=== PATIENT | female | born 1995 | race Caucasian/White ===

== ENCOUNTER 2016-07-17 13:00 | Emergency (ER) | payer BC ==
[2016-07-17] MEDS ORDERED: Sodium Chloride 0.9% 10 ML Syringe FLUSH PRN (13:29)
[2016-07-17] MEDS ORDERED: Sodium Chloride 0.9% 1,000 ML IV SCH (13:30)
[2016-07-17] MEDS ORDERED: Ketorolac 30 MG/ML SDV IVPUSH ONE (13:31)
[2016-07-17] MEDS ORDERED: cefTRIAXone 1,000 MG in Sodium Chloride 0.9% 50 ML IV ONE (13:39)
--- NOTE | 2016-07-17 13:49 | EDM.PDOC ---
ED HPI GI/ABDOMINAL - General Chief Complaint: Abdominal Pain Stated Complaint: abdominal pain Time Seen by Provider: 07/17/16 13:20 Source: Reports: Patient History Limitations: Reports: No limitations - History of Present Illness INITIAL COMMENTS - FREE TEXT/NARRATIVE: c/o abd pain x 3h pt drank 8-9 gin and tonics last night, woke up at 8 AM and was "hung over", ate hash browns and a few bites of eggs and martínez. At 10:30 AM she had onset of sharp pain in her L lower back and periumbilical area, both at the same time. She took Aleve or Advil x 3 at 10:30 AM, which has not helped. Pain has persisted. Inc'd with walking, no change with DB. No freq or dysuria. Did have UTI x 1 in past. No prior abd problems. UA here did show clots of blood as well as moderate bacteria and large amount of RBC. No n/v, no f/c/d. Regular BMs. Had an eating disorder in HS, wouild eat only bananas and only a few of them, would binge and purge. Was anxious and had PAs, still has anxiety, PAs are less of an issue. Last saw PCP Olivia Marcelino 1y ago, she rx'ed meds for anxiety and depression, however pt gained wt, stoped the meds, and has been "eating healthy." LMP 2w ago, wnl, 4-5d flow, on BCP. Had "diarrhea constantly" in HS, on a lactose free diet and then a gluten free diet, which helped fora couple of days. Sister had celiac disease. Had seen GI physician, colonoscopy recommended to evaluate for inflammatory bowel ds, not done yet. Sister has celiac ds. Grandfather has irritable bowel ds. Here with s.o. no prior abd surgery - Related Data Allergies/ADRs: Allergies Allergy/AdvReac Type Severity Reaction Status Date / Time animals Allergy Hives Uncoded 07/17/16 13:26 seasonal allergies Allergy Itching Uncoded 07/17/16 13:26 Home Meds: Home Meds Clindamycin HCl 300 mg PO TID #21 capsule 07/17/16 [Rx] Ibuprofen [Motrin] 800 mg PO QID PRN 07/17/16 [History] Norgestrel-Ethinyl Estradiol [Elinest-28 Tablet] 1 tab PO DAILY 07/17/16 [ History] Past Medical History Psychiatric History: Reports: Anxiety, Depression Social & Family History - Tobacco Use Smoking Status *Q: Former Smoker Used Tobacco, but Quit: Yes Month Tobacco Last Used: 18 month ago - Caffeine Use Caffeine Use: Reports: Coffee - Recreational Drug Use Recreational Drug Use: No ED ROS GENERAL - Review of Systems Review Of Systems: See Below Constitutional: Reports: no symptoms HEENT: Reports: No symptoms Respiratory: Reports: No Symptoms Cardiovascular: Reports: No symptoms Endocrine: Reports: no symptoms GI/Abdominal: Reports: Abdominal pain, Decreased appetite : Reports: no symptoms Musculoskeletal: Reports: back pain Skin: Reports: no symptoms Neurological: Reports: No Symptoms Psychiatric: Reports: No symptoms Hematologic/Lymphatic: Reports: no symptoms Immunologic: Reports: no symptoms ED EXAM, GI/ABD - Physical Exam Exam: See Below Exam Limited By: No limitations General Appearance: alert, WD/WN, mild distress, other (alert, nonill, walks gingerly, nontoxic) Eyes: bilateral: normal appearance, EOMI Ears: normal external exam, normal canal, hearing grossly normal, normal TMs Nose: normal inspection, normal mucosa, no blood Throat/Mouth: Normal inspection, Normal lips, Normal teeth, Normal gums, Normal oropharynx, Normal voice, No airway compromise Head: atraumatic, normocephalic Neck: normal inspection, supple, non-tender, full range of motion Respiratory/Chest: no respiratory distress, lungs clear, normal breath sounds, no accessory muscle use, chest non-tender Cardiovascular: normal peripheral pulses, regular rate, rhythm, no edema, no gallop, no JVD, no murmur, no rub GI/Abdominal: normal bowel sounds, soft, no organomegaly, no distention, no mass , other (good BS x 4, slight tender at L flank, ND, no guard, no rebound, 1+ tender at R flank, NT in lower and upper quadrants, no CVAT, mild spasm at R lower back) Rectal (Female) Exam: Normal Exam, Normal rectal tone Back Exam: normal inspection, full range of motion, NT Extremities: normal inspection, normal range of motion, non-tender, normal capillary refill, no pedal edema Neurological: alert, oriented, CN II-XII intact, normal cognition, normal gait, no motor/sensory deficits Psychiatric: normal affect, normal mood Skin Exam: Warm, Dry, Intact, Normal color, No rash Lymphatic: no adenopathy Course - Vital Signs Last Recorded V/S: Last Vital Signs Temp 36.9 C 07/17/16 13:15 Pulse 94 07/17/16 13:15 Resp 20 07/17/16 13:15 BP 134/87 07/17/16 13:15 Pulse Ox 100 07/17/16 13:15 - Orders/Labs/Meds Orders: Active Orders 24 hr Category Date Time Status Abdomen Pelvis wo Cont [CT] Stat Exams 07/17/16 13:38 Taken CULTURE URINE [RM] Stat Lab 07/17/16 13:15 Received LIPASE [REF] Stat Lab 07/17/16 13:36 Received Sodium Chloride 0.9% [Normal Saline] 1,000 ml Med 07/17/16 13:30 Active IV ASDIRECTED Sodium Chloride 0.9% [Saline Flush] Med 07/17/16 13:29 Active 10 ml FLUSH ASDIRECTED PRN Saline Lock Insert [OM.PC] Routine Oth 07/17/16 13:29 Ordered Medication Orders Sodium Chloride (Normal Saline) 1,000 mls @ 999 mls/hr IV ASDIRECTED HAN Last Admin: 07/17/16 13:40 Dose: 999 mls/hr Sodium Chloride (Saline Flush) 10 ml FLUSH ASDIRECTED PRN PRN Reason: Keep Vein Open Last Admin: 07/17/16 13:40 Dose: 10 ml Labs: Laboratory Tests 07/17/16 07/17/16 07/17/16 Range/Units 13:15 13:20 13:36 WBC 7.1 (4.5-12.0) X10-3/uL RBC 4.28 (3.23-5.20) x10(6)uL Hgb 12.9 (11.5-15.5) g/dL Hct 38.3 (30.0-51.3) % MCV 89.4 (80-96) fL MCH 30.3 (27.7-33.6) pg MCHC 33.8 (32.2-35.4) g/dL RDW 12.8 (11.5-15.5) % Plt Count 325 (125-369) X10(3)uL MPV 9.9 (7.4-10.4) fL Neut % (Auto) 60.0 (46-82) % Lymph % (Auto) 29.9 (13-37) % [place] % (Auto) 6.3 (4-12) % Eos % (Auto) 3 (1.0-5.0) % Baso % (Auto) 1 (0-2) % Neut # (Auto) 4.4 (1.6-8.3) # Lymph # (Auto) 2.1 (0.6-5.0) # [place] # (Auto) 0.4 (0.0-1.3) # Eos # (Auto) 0.2 (0.0-0.8) # Baso # (Auto) 0.0 (0.0-0.2) # Sodium (135-145) mmol/L Potassium (3.5-5.3) mmol/L Chloride (100-110) mmol/L Carbon Dioxide (23-29) mmol/L BUN (5-20) mg/dL Creatinine (0.6-1.3) mg/dL Est Cr Clr Drug Dosing mL/min Estimated GFR (MDRD) (>60) BUN/Creatinine Ratio (9-20) Glucose (80-116) mg/dL Calcium (8.6-10.2) mg/dL Total Bilirubin (0.1-1.3) mg/dL AST (5-27) IU/L ALT (14-26) IU/L Alkaline Phosphatase (56-112) IU/L C-Reactive Protein (0.0-1.0) mg/dL Total Protein (6.0-8.0) g/dL Albumin (3.5-5.2) g/dL Globulin g/dL Albumin/Globulin Ratio Amylase (28-100) U/L Urine Color Yellow (YELLOW) Urine Appearance Cloudy (CLEAR) Urine pH 9.0 H (5.0-6.5) Ur Specific [place] 1.015 (1.010-1.025) Urine Protein Trace (NEGATIVE) mg/dL Urine Glucose (UA) Normal (NEGATIVE) mg/dL Urine Ketones Negative (NEGATIVE) mg/dL Urine Occult Blood Large H (NEGATIVE) Urine Nitrite Negative (NEGATIVE) Urine Bilirubin Negative (NEGATIVE) Urine Urobilinogen Normal (NEGATIVE) mg/dL Ur Leukocyte Esterase Small H (NEGATIVE) Urine RBC >100 H (0) Urine WBC 5-10 (0) Ur Squamous Epith Cells Few H (NS,R,O) Urine Bacteria Moderate H (NS) Urine Mucus Few H (NS) Urine HCG, Qual Negative (NEGATIVE) 07/17/16 Range/Units 13:36 WBC (4.5-12.0) X10-3/uL RBC (3.23-5.20) x10(6)uL Hgb (11.5-15.5) g/dL Hct (30.0-51.3) % MCV (80-96) fL MCH (27.7-33.6) pg MCHC (32.2-35.4) g/dL RDW (11.5-15.5) % Plt Count (125-369) X10(3)uL MPV (7.4-10.4) fL Neut % (Auto) (46-82) % Lymph % (Auto) (13-37) % [place] % (Auto) (4-12) % Eos % (Auto) (1.0-5.0) % Baso % (Auto) (0-2) % Neut # (Auto) (1.6-8.3) # Lymph # (Auto) (0.6-5.0) # [place] # (Auto) (0.0-1.3) # Eos # (Auto) (0.0-0.8) # Baso # (Auto) (0.0-0.2) # Sodium 138 (135-145) mmol/L Potassium 3.6 (3.5-5.3) mmol/L Chloride 107 (100-110) mmol/L Carbon Dioxide 22 L (23-29) mmol/L BUN 14 (5-20) mg/dL Creatinine 0.8 (0.6-1.3) mg/dL Est Cr Clr Drug Dosing 86.50 mL/min Estimated GFR (MDRD) > 60 (>60) BUN/Creatinine Ratio 17.5 (9-20) Glucose 96 (80-116) mg/dL Calcium 8.5 L (8.6-10.2) mg/dL Total Bilirubin 0.3 (0.1-1.3) mg/dL AST 27 (5-27) IU/L ALT 21 (14-26) IU/L Alkaline Phosphatase 54 L (56-112) IU/L C-Reactive Protein 0.8 (0.0-1.0) mg/dL Total Protein 7.5 (6.0-8.0) g/dL Albumin 4.2 (3.5-5.2) g/dL Globulin 3.3 g/dL Albumin/Globulin Ratio 1.3 Amylase 49 (28-100) U/L Urine Color (YELLOW) Urine Appearance (CLEAR) Urine pH (5.0-6.5) Ur Specific [place] (1.010-1.025) Urine Protein (NEGATIVE) mg/dL Urine Glucose (UA) (NEGATIVE) mg/dL Urine Ketones (NEGATIVE) mg/dL Urine Occult Blood (NEGATIVE) Urine Nitrite (NEGATIVE) Urine Bilirubin (NEGATIVE) Urine Urobilinogen (NEGATIVE) mg/dL Ur Leukocyte Esterase (NEGATIVE) Urine RBC (0) Urine WBC (0) Ur Squamous Epith Cells (NS,R,O) Urine Bacteria (NS) Urine Mucus (NS) Urine HCG, Qual (NEGATIVE) Meds: Medications Generic Name Dose Route Start Last Admin Trade Name Freq PRN Reason Stop Dose Admin Sodium Chloride 1,000 mls @ 999 mls/hr 07/17/16 13:30 07/17/16 13:40 Normal Saline IV 999 mls/hr ASDIRECTED HAN Administration Sodium Chloride 10 ml 07/17/16 13:29 07/17/16 13:40 Saline Flush FLUSH 10 ml ASDIRECTED PRN Administration Keep Vein Open Discontinued Medications Generic Name Dose Route Start Last Admin Trade Name Freq PRN Reason Stop Dose Admin Ceftriaxone Sodium 1,000 mg/ 50 mls @ 200 mls/hr 07/17/16 13:39 07/17/16 13: 52 Sodium Chloride IV 07/17/16 13:53 Not Given ONETIME ONE Ceftriaxone Sodium 1 gm/ 50 mls @ 100 mls/hr 07/17/16 13:51 07/17/16 14:00 Sodium Chloride IV 07/17/16 14:20 100 mls/hr ONETIME ONE Administration Ketorolac Tromethamine 30 mg 07/17/16 13:31 07/17/16 13:48 Toradol IVPUSH 07/17/16 13:32 30 mg ONETIME ONE Administration - Re-Assessments/Exams Free Text/Narrative Re-Assessment/Exam: 07/17/16 14:57 labs neg, CT showed no stones, small amount of air in bladder of uncertain etiology and moderate stool. Pt feeling better, repeat exam shows no CVAT, abd soft with nl BS x 4 and now NT at flanks as well as upper and lower quadrants. 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 Last pap and pelvic 1yago in [place]. Will use clinda to cover anaerobes and have her see PCP in 1d to recheck u/a. As precaution, will have her drink 10 oz mg citrate as abd pain may be from intestinal spasm. No evidence of pyelo. A colic-vesicular fistula is a remote possibility. If hematuria persists, a cystoscopy may be needed. UC pending. Departure - Departure Time of Disposition: 15:01 Disposition: Home, Self-Care 01 Condition: good Clinical Impression: Hemorrhagic cystitis Prescriptions: Clindamycin HCl 300 mg PO TID #21 capsule Referrals: Olivia Marcelino PA [Primary Care Provider] - Forms: ED Department Discharge Additional Instructions: For infection, take clindamycin 300 mg 1 capsule 3 times a day for 7 days. Take 3 tabs today. For pain and inflammation, take ibuprofen 200 mg 4 tabs and acetaminophen 325 mg 2 tabs this evening and 3 times tomorrow. To move stool through the colon and decrease cramping, drink a 10-ounce bottle of magnesium citrate. No alcohol. See Olivia tomorrow for followup and to recheck your urinalysis. Return to ED if you are feeling worse. Call your Physician or Return to Emergency Department if: * Your condition worsens in any way. * You develop fever greater than 100.4. * You have vomiting that does not stop with medications. * You have pain that is not controlled with medications. - My Orders Last 24 Hours: My Active Orders 07/17/16 13:15 CULTURE URINE [RM] Stat 07/17/16 13:29 Sodium Chloride 0.9% [Saline Flush] 10 ml FLUSH ASDIRECTED PRN Saline Lock Insert [OM.PC] Routine 07/17/16 13:30 Sodium Chloride 0.9% [Normal Saline] 1,000 ml IV ASDIRECTED 07/17/16 13:36 LIPASE [REF] Stat 07/17/16 13:38 Abdomen Pelvis wo Cont [CT] Stat - Assessment/Plan Last 24 Hours: My Active Orders 07/17/16 13:15 CULTURE URINE [RM] Stat 07/17/16 13:29 Sodium Chloride 0.9% [Saline Flush] 10 ml FLUSH ASDIRECTED PRN Saline Lock Insert [OM.PC] Routine 07/17/16 13:30 Sodium Chloride 0.9% [Normal Saline] 1,000 ml IV ASDIRECTED 07/17/16 13:36 LIPASE [REF] Stat 07/17/16 13:38 Abdomen Pelvis wo Cont [CT] Stat
[2016-07-17] MEDS ORDERED: cefTRIAXone 1 GM in Sodium Chloride 0.9% 50 ML IV ONE (13:51)
[2016-07-17 15:18] VITALS: BP 125/65
== END 2016-07-17 15:15 | disposition home or self-care (01) ==
LOC: FB.ED 13:00
DX: N30.90 Cystitis, unspecified without hematuria (principal); F41.9 Anxiety disorder, unspecified; F32.9 Major depressive disorder, single episode, unspecified; Z91.09 Other allergy status, other than to drugs and biological substances; Z79.899 Other long term (current) drug therapy; Z87.891 Personal history of nicotine dependence
CPT/HCPCS: 36415; 74176; 80053; 81001; 81025; 82150; 83690; 85025; 86140; 87086; 87088; 87186; 96361; 96374; 96375; 99285; J0696; J1885; J7040; J7050